=== PATIENT | female | born 1950 | race Caucasian/White ===

== ENCOUNTER → 2019-12-19 | Outpatient (CLI) | payer MEDICARE, BC ==
--- NOTE | 2019-12-20 13:11 | Diagnostic Imaging Report ---
History: Spondylolisthesis, low back pain Comparison studies: None Technique: Sagittal axial and coronal T2, sagittal T1 and IR, axial spin density oblique. Intravenous contrast: None Findings: Number of lumbar vertebral bodies: 5. Alignment: Hyperlordotic lumbar curvature as well as small levo lumbar curvature centered at L4-L5. Grade 1 anterolisthesis of L5 on S1 by proximally 8 mm secondary to chronic defects at the bilateral L5 pars interarticularis. Soft tissues: No T2 hyperintense inflammatory changes. Paraspinal muscles: Symmetric fatty-replaced atrophic changes, worse/moderate from L4 through the lumbosacral junction. Lower thoracic cord: Normal in signal and morphology. The tip of the conus is at L2. Cauda equina: No masses. No arachnoiditis. Vertebrae: Nonaggressive-appearing T2/STIR hyperintense lesions present in the T9 and T12 vertebral bodies which measure approximately 2.0 cm and 1.8 cm respectively. Additional nonaggressive-appearing 1.8 cm lesion centered in the right L3 pedicle. No compression fracture or infection. Degenerative changes: L1-L2: Mildly degenerated disc. Asymmetric right disc bulge along the concavity lumbar curvature results in mild right foraminal narrowing. Patent canal and left foramen. L2-L3: Mildly degenerated disc. Minimal retrolisthesis of L2 on L3 with associated uncovered disc/disc bulge without significant canal or foraminal stenosis. L3-L4: Mildly degenerated disc. Asymmetric left disc bulge and mild facet arthrosis result in mild left frontal stenosis. Patent canal and right foramen. L4-L5: Moderately degenerated disc with loss of disc height and degenerative endplate changes without endplate edema on the right along the concavity lumbar curvature. Disc osteophyte complex and facet arthrosis result in moderate bilateral foraminal stenosis. No significant canal stenosis. L5-S1: Grade 1 L5 isthmic spondylolisthesis with associated uncovered disc/disc bulge and advanced facet arthrosis result in severe bilateral foraminal stenosis with impingement on the bilateral S1 nerve roots. No canal stenosis. Additional findings: Multiple indeterminate small T2 hyperintense lesions in the partially imaged right lobe of the liver. Cannot further evaluate on this exam. IMPRESSION: 1. Grade 1 isthmic spondylolisthesis at L5-S1 with associate severe bilateral foraminal stenosis which result in bilateral L5 nerve root impingement. 2. Moderate bilateral foraminal stenosis and moderate disc degeneration along the concavity of mild lumbar levocurvature at L4-5. 3. Additional degenerative changes as described. No canal stenosis 4. Incidental vertebral body lesions (T9, T12 and at L3). Though benign lesion such as atypical/lipid-poor hemangiomas could have this appearance, bone scan to further evaluate or follow-up lumbar spine to document stability are recommended. 5. Multiple small indeterminate liver lesions. Abdomen CT may further evaluate. Thoracic bone lesions may also be further characterize by CT at that time. Signed by: Dr. Tino Nolen M.D. on 12/20/2019 1:07 PM
== END ==
LOC: MRI 13:17
PROVIDERS: ATTEND Internal Medicine Cardiovascular Disease
DX: M43.16 Spondylolisthesis, lumbar region (principal)
CPT/HCPCS: 72148